=== PATIENT | male | born 1970 | race Caucasian/White ===

== ENCOUNTER 2016-11-19 18:40 | Inpatient (IN) | payer MEDICARE, OTHER ==
--- NOTE | ~2016-11-19 | BMI ---
[facility] Nutrition Therapy DATE: 11/21/16 Patient: DANISHA RAMOS Physician: LYN Address: [address] Room/Bed: [address] [place] [address], Zip: [place] [address] Admit Date: 11/19/16 Date of : [birth year] Height: 5 8 Weight: 280 127.4 HIGH BMI NOTE: DX: 45 yo male admitted for COPD exacerbation ANTHROPOMETRICS: HT: 5'3" WT: 127.4 kg (280#) BMI: 49.8 DIET: Heart healthy INTERVENTION: 1. Heart healthy diet RECOMMENDATIONS: 1. Continue heart healthy diet to promote gradual weight loss towards healthy BMI Respectfully, DAVID SHELBY, [employer] Ricki Meraz MS, RD, LD [facility] cc: client file
--- NOTE | ~2016-11-19 | HP ---
Unit #: [id number] #: [id number] Patient: DANISHA RAMOS [id number] [address] [address] [id number] I MR#: [id number] NAME: DANISHA RAMOS ROOM: 340 Age: 45 Sex: M Admission Date: 11/19/2016 : 1970 Attending Physician: Sharmaine Dalal M.D. Primary Care Physician: Rod Rivera M.D. HISTORY AND PHYSICAL CHIEF COMPLAINT COPD exacerbation. HISTORY OF PRESENT ILLNESS The patient is a 45-year-old male with past medical history of COPD, hypertension, anxiety, diabetes, peripheral neuropathy, migraine headaches, obstructive sleep apnea, chronic pain, morbid obesity, who was a direct admit from his primary care physician for evaluation of the above. The patient has had a four-week history of increasing shortness of breath and nonproductive cough. He states that he has had dyspnea on exertion when walking across the room. He states that he has had chills but no documented fever. He states that he has had chest wall pain in association with cough. He has also had paroxysmal nocturnal dyspnea. He had to sleep sitting up last night due to difficulty breathing. He has apparently had several depo-Medrol shots as well as Medrol Dosepak with no relief of symptoms. He states he has not been on antibiotics. He has not had a chest x-ray. He did have a flu swab yesterday that was negative. He was sent to [facility] for admission. PAST MEDICAL HISTORY 1. Admission to [facility] 06/18 through 06/20/2016 for headache. 2. Diabetes with peripheral neuropathy. 3. Hypertension. 4. COPD, not on home oxygen. The patient sees Dr. Ashton. 5. Anxiety. 6. History of obstructive sleep apnea, previously on CPAP. The patient states that he no longer has sleep apnea. 7. Chronic pain maintained on narcotics. 8. Migraine headaches. 9. Morbid obesity. 10. Echocardiogram 06/14/2012 was technically extremely limited and could not comment on valves but ejection fraction was noted to be 55%. PAST SURGICAL HISTORY 1. Cholecystectomy. 2. Umbilical hernia repair. 3. Cystoscopy. 4. Lap band surgery. 5. Right knee surgery. ALLERGIES 1. Doxycycline. Unit #: [id number] #: [id number] Patient: DANISHA RAMOS 2. Penicillin. 3. Darvocet. 4. Toradol. 5. Naproxen. 6. Mobic. 7. Tramadol. 8. Glyburide. 9. Keflex. 10. Flexeril. HOME MEDICATIONS Include: 1. Naproxen which is actually listed as an allergy. 2. Ventolin. 3. Xanax. 4. DuoNeb. 5. Singulair. 6. Claritin. 7. Motrin. 8. Daliresp. 9. Dulera. 10. Prednisone. 11. Amlodipine. 12. Valsartan. 13. Hydrochlorothiazide. 14. Dicyclomine. 15. Spiriva. 16. [place]. 17. Metolazone. 18. Neurontin. 19. Mupirocin topical ointment. 20. Baclofen. 21. Cialis. 22. Symbicort. Home medications will need to be reviewed and verified. SOCIAL HISTORY The patient lives with his . There is no tobacco, alcohol, or illicit drug use. FAMILY HISTORY Notable for his mother having possibly a cerebrovascular accident as well as migraine headaches. REVIEW OF SYSTEMS A complete review of systems is negative except as indicated in the HPI. The patient states that he has lost an unknown amount of weight. The patient states that his blood sugars have been in the 200 to 300 range. PHYSICAL EXAMINATION VITAL SIGNS: Temperature 98.1, pulse 94, respirations 22, blood pressure 149/101, oxygen saturation was 98% on room air. GENERAL: The patient is a male who is awake and alert, sitting in bed, in no acute distress. HEENT: Head is atraumatic. Mucous membranes are moist. NECK: Supple. Trachea is midline. LUNGS: Demonstrate inspiratory and expiratory wheezes. Breathing is not Unit #: [id number] #: [id number] Patient: DANISHA RAMOS labored with conversation. HEART: Regular rate and rhythm. ABDOMEN: Obese, soft, nontender. Bowel sounds present in all four quadrants. EXTREMITIES: Nontender. He has chronic lymphedema. NEUROLOGIC: Patient is awake and alert. He follows commands. PSYCHIATRIC: Mood and affect are normal. Patient is cooperative. SKIN OF EXAMINED AREAS: Warm and dry. DIAGNOSTIC STUDIES Currently pending. I was told by the patient's primary care physician that the flu swab was negative yesterday. ASSESSMENT The patient is a 45-year-old male with: 1. Chronic obstructive pulmonary disease exacerbation that has failed outpatient treatment with prednisone. 2. Hypertension. 3. Anxiety. 4. Diabetes. 5. Peripheral neuropathy. 6. Migraine headaches. 7. Obstructive sleep apnea. Actually, the patient states that he no longer has obstructive sleep apnea. 8. Chronic pain maintained on narcotics. 9. Morbid obesity. PLAN 1. Admit to intermediate level. 2. Healthy-heart consistent carb diet. 3. Supplemental oxygen 2-4 liters to maintain saturations greater than 92%. 4. DuoNeb q.4 h. while awake and q.2 h. p.r.n. 5. Solu-Medrol 80 mg IV q.12 h. with first dose now. 6. Consult Dr. Luna regarding COPD exacerbation. 7. Chest x-ray now. 8. Check labs including lactic acid. 9. EKG now and cardiac enzymes. 10. Urinalysis with culture and sensitivity. 11. Hemoglobin A1c. 12. Low-dose sliding scale insulin with Accu-Cheks. 13. Protonix for GI prophylaxis since the patient will be on Solu-Medrol. 14. SCDs for DVT prophylaxis. 15. Repeat labs in the morning. 16. Additional workup and consultants based on above. Dictated by Sharmaine Dalal M.D. Unit #: [id number] #: [id number] Patient: DANISHA RAMOS MAGGIE/jayce TD: 11/19/2016 18:52 JOB #: [id number] HISTORY AND PHYSICAL X Sharmaine Dalal MD X HISTORY AND PHYSICAL
--- NOTE | ~2016-11-19 | CO ---
Unit #: [id number] #: [id number] Patient: DANISHA RAMOS [id number] [place] [facility]. [place], [place] [address] [id number] I MR#: [id number] NAME: DANISHA RAMOS ROOM: 340 Age: 45 Sex: M Admission Date: 11/19/2016 : 1970 Attending Physician: Trudi Vallejo M.D. Primary Care Physician: Rod Rivera M.D. Consultation Date: 11/20/2016 CONSULTATION REPORT JOB NOTE: CC: DR. SUMMERS REASON FOR CONSULTATION Shortness of breath, asthma flare, failure with outpatient treatment. HISTORY OF PRESENT ILLNESS A 45-year-old gentleman who has asthma and apparently is followed by Dr. Ashton in our office, who has had a monthlong history of wheezing and shortness of breath and chest congestion. He has been treated with steroids in a variety of fashion without success. He finally was admitted to the hospital. He has been treated with IV steroids, nebulized bronchodilators overnight, and really does not feel much better today. He has significant wheezing. No sputum production, but he does feel congested and feels that there is "wet mucus in there," but cannot expectorate it. No fever, chest pain, or hemoptysis. He is unaware of any definite exposures over this time. He does have significant allergies including grass, trees, and dogs. Of note, he does have a dog at home. PAST MEDICAL HISTORY Remarkable for: 1. Asthma, history of diabetes, hypertension, obstructive sleep apnea; obesity, status post Lap-Band with significant weight loss; apparently re-evaluation of his sleep apnea after weight loss revealed CPAP was no longer warranted. 2. Anxiety. 3. Chronic pain. 4. Workup in the past that he tells me included cardiac catheterization and echocardiogram was all normal, but that was years ago, apparently saw Dr. Rodrigues in the past. MEDICATIONS AT HOME He states that he is on Symbicort b.i.d., although insurance is not going to cover it. Dulera is listed on med rec sheet. Ventolin, Xanax, DuoNeb, Singulair, Claritin, Motrin, Norvasc, valsartan, hydrochlorothiazide, Spiriva, [place]. He takes Zaroxolyn p.r.n., Neurontin, baclofen. Again his list has multiple redundancies. ALLERGIES Propoxyphene, Toradol, Keflex, penicillin, doxycycline, Mobic, glyburide. SOCIAL HISTORY He is a never smoker. FAMILY HISTORY Unit #: [id number] #: [id number] Patient: DANISHA RAMOS He denies any asthma in his family. REVIEW OF SYSTEMS As above and no real chest pain, palpitations, hemoptysis, abdominal pain. He denies heartburn. He does have some rhinitis symptoms. He downplays any allergies to his dog. He says usually he has itchy eyes if he gets allergies to that nature. No hematuria, dysuria, focal weakness, paresthesias. No new leg pain or swelling. Further review of systems negative. PHYSICAL EXAMINATION GENERAL: Reveals a patient, who is in no acute distress, sitting in bed, talking in full sentences. VITAL SIGNS: He is afebrile, pulse 98, respiratory rate is 19, blood pressure is 173/104, 5 feet 8 inches, 282 pounds, BMI is 45. HEENT: Pupils equal, round, and reactive to light. Sclerae anicteric. Head atraumatic. Mucous membranes are moist. He has a ordoñez. NECK: Supple. No supraclavicular or cervical adenopathy appreciated. CHEST: Tight expiratory wheeze at all lung vera. No consolidation. No stridor. CARDIAC: Reveals distant heart tones. Regular rate and rhythm. No pathologic murmur, rub, or gallop. ABDOMEN: Obese, soft, nontender. No hepatomegaly or rebound. EXTREMITIES: Reveal no clubbing, cyanosis. He has some trace edema. He does have SCD stockings in place. It appears that he has some degree of lymphedema. NEUROLOGIC: Grossly intact. No focal motor or sensory deficits. DIAGNOSTIC STUDIES IMAGING STUDIES: Chest x-ray is clear. LABORATORY RESULTS: BUN 13, creatinine 1.0. Troponin negative. BNP last month normal. Lactic acid 1.2. White blood cell count 14.2, no eosinophilia, hemoglobin 12.3, platelet count 257. Urinalysis unremarkable. Urine culture is pending. CARDIOVASCULAR STUDIES: EKG, rhythm strips are sinus. Unremarkable EKG. IMPRESSION 1. Asthma/chronic obstructive pulmonary disease exacerbation quite resistant to steroid therapy. Consider allergic stimulation versus secondary bacterial bronchitis. 2. Obesity, status post Lap-Band. 3. Obstructive sleep apnea per his history resolved with weight loss. 4. Allergies including allergies to dogs, which he has at home. 5. Hypertension with elevated blood pressure. 6. Diabetes, anxiety, chronic pain. 7. Possible lymphedema. PLAN Steroids, however, we will increase the dose. Agree with nebulized bronchodilators. I will add antibiotics for possible bronchitis. Echocardiogram will be checked in the morning for LV function and PA pressures. I will try to review Dr. Ashton's office notes in the morning including any PFTs or sleep studies. DVT prophylaxis is I do think he is at increased risk for DVT given obesity and acute illness. Thank you very much for allowing me to participate in the care of . Unit #: [id number] #: [id number] Patient: DANISHA RAMOS. Dictated by... Efren Baron/cristina TD: 11/21/2016 02:31 JOB #: [id number] CONSULTATION REPORT X Mikael Luna MD X CONSULTATION REPORT
--- NOTE | ~2016-11-19 | CR63 ---
[facility] A Service of [facility] RADIOLOGY TEXT RESULTS PATIENT: DANISHA RAMOS LOCATION: [facility] 340-01 : [birth year] UNIT #: [id number] AGE: [address]: Sharmaine Dalal MD SEX: M ORDER DR: [id number] [facility] [address] [facility]. [place], [place] [address] [id number] I MR#: [id number] Acc #: [id number] NAME: DANISHA RAMOS : 1970 SEX: M STUDY DATE/TIME: 11/19/2016 21:12 UNIT: [address] ROOM: [facility] STUDY DESCRIPTION: CR Chest 2 View Attending Physician: Sharmaine Dalal M.D. Ordering Physician: Sharmaine Dalal M.D. Primary Care Physician: Rod Rivera M.D. MEDICAL IMAGING REPORT This report is preliminary unless electronic signature is present EXAM Chest x-ray 2 views HISTORY COPD, short of air, cough, admitted 11/19/2016, symptoms for 1 day, history of hypertension, diabetes and obesity COMPARISON 10/19/2016 COMMENT 2 views of the chest are reviewed. No pleural effusion. Mild thoracic degenerative changes. Cardiac silhouette is normal. No acute appearing parenchymal infiltrate. No acute congestive failure. No pneumothorax. IMPRESSION No active disease. Dictated by... Sofia Posada M.D. THIS IS AN ELECTRONICALLY VERIFIED REPORT Sofia Posada M.D. at 11/21/2016 7:47 AM SAC/erinn TD: 11/21/2016 06:52 JOB #: [id number] MEDICAL IMAGING REPORT COPY
--- NOTE | ~2016-11-19 | CR63 ---
[facility] A Service of [facility] RADIOLOGY TEXT RESULTS PATIENT: DANISHA RAMOS LOCATION: [facility] 340-01 : [birth year] UNIT #: [id number] AGE: [address]: Trudi Vallejo MD SEX: M ORDER DR: [id number] [facility] [address] [facility]. [place], [place] [address] [id number] I MR#: [id number] Acc #: [id number] NAME: DANISHA RAMOS : 1970 SEX: M STUDY DATE/TIME: 11/21/2016 16:21 UNIT: [address] ROOM: [facility] STUDY DESCRIPTION: CR Chest 2 View Attending Physician: Trudi Vallejo M.D. Ordering Physician: Mikael Luna M.D. Primary Care Physician: Rod Rivera M.D. MEDICAL IMAGING REPORT This report is preliminary unless electronic signature is present EXAM PA and lateral chest INDICATIONS 45-year-old male with shortness of breath and chest tightness for 1 month. COMPARISON 11/19/2016 FINDINGS Lungs are well expanded and clear. Heart size is normal. The visualized osseous structures are unremarkable. IMPRESSION No active disease. Dictated by... Christiano Cotto M.D. THIS IS AN ELECTRONICALLY VERIFIED REPORT Christiano Cotto M.D. at 11/22/2016 8:08 AM MALCOLM/isidro TD: 11/22/2016 06:26 JOB #: [id number] MEDICAL IMAGING REPORT Page 1 of 1 COPY
--- NOTE | ~2016-11-19 | DS ---
Unit #: [id number] #: [id number] Patient: DANISHA RAMOS [id number] [address] [id number] I MR#: [id number] NAME: DANISHA RAMOS ROOM: 340 Age: 45 Sex: M Admission Date: 11/19/2016 : 1970 Discharge Date: Attending Physician: Trudi Vallejo M.D. Primary Care Physician: Rod Rivera M.D. DISCHARGE SUMMARY DISCHARGE DIAGNOSES 1. Acute asthma with exacerbation. 2. Hypertension. 3. Diabetes mellitus type 2 with peripheral neuropathy, uncontrolled. 4. Anxiety. 5. Migraine headache. 6. Obstructive sleep apnea. 7. Chronic pain and narcotics. 8. Morbid obesity. 9. Leukocytosis, secondary to steroids. CONSULTATION Dr. Luna. PROCEDURE None. DIAGNOSTIC STUDIES LABORATORY: Glucose 147, sodium 132, potassium 3.5, creatinine 0.9. WBC 20.2, hemoglobin 12.9, platelets 322,000. Urine cultures negative. Procalcitonin less than 0.05. IMAGING: Chest x-ray: No active disease. ALLERGIES Penicillin, glyburide, propoxyphene, cephalexin, doxycycline, ketorolac, meloxicam. DISCHARGE MEDICATIONS 1. Albuterol 3 mL nebulizer four times daily p.r.n. shortness of breath. 2. Budesonide/formoterol one to two puffs inhalation b.i.d. 3. Prednisone tapering dose. 4. Spiriva 18 mcg inhalation daily. 5. Gabapentin 100 mg p.o. at bedtime. 6. Claritin 10 mg daily. 7. Bentyl 20 two times daily. 8. Xanax 1 mg three times daily. 9. Symbicort two puffs inhalation b.i.d. 10. Amlodipine/valsartan/hydrochlorothiazide one tablet p.o. daily. 11. Zaroxolyn 5 mg three times daily p.r.n. for fluid retention. 12. NovoLog low-dose sliding scale. 13. Singulair 10 mg daily. 14. Ibuprofen 800 q.8 p.r.n. pain. 15. Lortab 10 mg four times daily p.r.n. pain. Unit #: [id number] #: [id number] Patient: DANISHA RAMOS 16. Tadalafil 5 mg daily p.r.n. 17. Daliresp 500 mcg p.o. daily. 18. Baclofen 10 mg daily. 19. DuoNeb inhalation q.6. 20. Azithromycin 250 mg p.o. daily. 21. Metformin 250 p.o. b.i.d. HOSPITALIZATION COURSE A 45 year old admitted because of shortness of breath. Asthma with exacerbation: The patient was wheezing and took a prolonged period to get better. Currently, he is off oxygen. He is ambulating fine. No wheezing. The patient will be discharged on prednisone tapering dose, Zithromax, DuoNeb, Spiriva, and Symbicort which will be given at Dr. Meier's office. Diabetes mellitus: Uncontrolled. Secondary to steroids. I gave prescription for metformin for a few days and follow with his family physician. Leukocytosis during the hospitalization course secondary to steroids trending down. Hypertension: Uncontrolled, most likely secondary to steroids. Continue with current home medications. PLAN Discussed with pulmonary, abimael to discharge the patient home. Follow with family physician in one week time. Follow with Dr. Ashton in one week time. Dictated by... Efren Ocampo/shayy TD: 11/24/2016 16:59 JOB #: [id number] DISCHARGE SUMMARY Page 1 of 1 X Trudi Vallejo MD X DISCHARGE SUMMARY
--- NOTE | ~2016-11-19 | EKG ---
PATIENT: DANISHA RAMOS UNIT #: [id number] Ventricular Rate: 91 BPM Atrial Rate: 91 BPM P-R Interval: 126 ms QRS Duration: 80 ms Q-T Interval: 334 ms QTC Calculation(Bezet): 410 ms P [place]: 51 degrees Calculated R [place]: 12 degrees Calculated T [place]: 37 degrees Diagnosis Line: Normal sinus rhythm Diagnosis Line: Normal ECG Diagnosis Line: When compared with ECG of 19-OCT-2016 15:08, Diagnosis Line: No significant change was found Diagnosis Line: Confirmed by DANISHA CARRILLO MD ([id number]) on 11/21/2016 Diagnosis Line: 7:30:45 AM INTERPRETING MD: GERARDO NG
[~2016-11-19 18:40] MED LIST: ALB/IPRATROPIUM/1 E1 INH; ALBUTEROL MININEB; ALBUTEROL17 GM; ALBUTEROL17 GM IN; ALBUTEROL17 GM INH; ALBUTEROL17 GM NEB; ALBUTEROL20 ml INH; ALDACTONE PO; ALDACTONE100 MG PO; ALPRAZOLAM PO; AMARYL PO; AMBIEN PO; AMLOD-VALSA-HC1 EAC3 PO; AMLOD-VALSA-HC1 EAC4 PO; ANTI ITCH; ANTI-ITCH28 GM TP; ASPIRIN81 M2 PO; ATARAX PO; BACLOFEN20 M1 PO; BACTRIM DS TABL1 TA1 PO; BACTROBAN22 GM TOP; BENADRYL PO; BENADRYL25 M1 PO; BENADRYL25 MG PO; BENTYL20 MG PO; BUMEX PO; BUTALB-APAP-CA1 EACH PO; CARTIA XT PO; CATAPRES-TTS-20.2 MG EXT; CATAPRES0.1 M1 PO; CELEXA PO; CIALIS5 MG PO; CLARITIN10 M2 PO; CLARITIN10 M3 PO; CLEOCIN PO; CLINDAMYCIN HC300 MG PO; CLONIDINE HCL0.1 MG PO; CLONIDINE PO; COMBIVENT U/D3 M4 INH; DALIRESP500 MCG PO; DELTASONE20 MG PO; DEMADEX PO; DICLOFENAC PO; DIPHENHYDRAMINE50 M1 PO; DULERA 200 MCG/13 GM INH; DUONEB 2.5-0.5 M3 ML NEB; FIORICET1 TAB PO; FLOMAX0.4 M1 PO; FUROSEMIDE40 MG PO; GLYBURIDE PO; HYDRALAZINE HC100 MG PO; HYDROXYZINE PA100 MG PO; IBUPROFEN IB200 M1 PO; IBUPROFEN PO; IBUPROFEN800 MG PO; IPRAT-ALBUT 0.5-3 ML; IPRAT-ALBUT 0.5-3 ML INH; IPRATR-ALBUTEROL3 ML INH; IRON325 ( 651 PO; K-DUR10 MEQ PO; KEFLEX500 M1 PO; LASIX PO; LEVAQUIN750 MG PO; LIORESAL10 MG PO; LIPITOR40 MG PO; LISINOPRIL-HCTZ1 T14 PO; LISINOPRIL10 MG PO; LISINOPRIL20 MG PO; LISINOPRIL5 MG PO; LORTAB 10-5001 EACH PO; LORTAB 10/500 T1 TAB PO; LORTAB 5/500 TA1 TA2 PO; LORTAB 7.5-5001 TAB PO; MEDROL DOSEPAK4 MG PO; METALOZONE; METFORMIN HCL500 M1 PO; METOLAZONE5 MG PO; MICRO-K10 MEQ PO; MOTRIN400 M1 PO; NAPROSYN-EC500 M1 PO; NAPROSYN500 MG PO; NEURONTIN100 MG PO; NEURONTIN300 MG PO; NORCO 10-325 TA1 TAB PO; NORCO 10/325 TA1 TAB PO; NORCO 10/3251 TAB; NORCO 7.5-3251 EACH PO; NORCO1 TAB 10/3 PO; POTASSIUM CHLO10 ME1 PO; PREDNISONE; PREDNISONE PO; PRILOSEC20 MG PO; PROTONIX PO; PROTONIX20 MG PO; SINGULAIR; SINGULAIR PO; SINGULAIR5 MG PO; SKELAXIN PO; SPIRIVA18 MCG INH; SYMBICORT; SYMBICORT 16010.2 GM; SYMBICORT 16010.2 GM INH; SYMBICORT INH; TOPAMAX PO; TOPAMAX50 MG; TOPAMAX50 MG PO; TOPROL XL 50 MG50 MG PO; VERAPAMIL ER120 M1 PO; VICODIN 5/500 T1 TAB PO; VISTARIL PO; VOLTAREN75 MG PO; XANAX0.5 M1 PO; XANAX1 MG PO; ZAROXYLYN; ZAROXYLYN PO
[2016-11-19] MEDS ORDERED: SINGULAIR PO (18:41)
[2016-11-19] MEDS ORDERED: XANAX XR1 MG PO (18:42)
[2016-11-19] MEDS ORDERED: ALBUTEROL17 GM INH (18:42)
[2016-11-19] MEDS ORDERED: DUONEB INH (18:46)
[2016-11-19 20:22] LABS: %MB 2.6 % (0.0-4.0); MB 5.4 ng/ml
[2016-11-19 20:57] LABS: ALBUMIN SERUM 3.7 g/dL (3.5-5.0); ALKALINE PHOSPHATASE 103 U/L (32-92); ALT (SGPT) 18 U/L (10-40); AST (SGOT) 17 U/L (10-42); BILIRUBIN,TOTAL 0.5 mg/dL (0.2-2.0); BLOOD UREA NITROGEN 13 mg/dL (9-23); CARBON DIOXIDE 21 mmol/L (22-31); CHLORIDE 101 mmol/L (100-111); GLOM FILT RATE Estimated ABOVE60 mL/min (>60); GLUCOSE FASTING 81 mg/dL (70-110); POTASSIUM 4.1 mmol/L (3.5-5.1); PROTEIN TOTAL SERUM 7.8 g/dL (6.0-8.3); SODIUM 133 mmol/L (135-145)
[2016-11-19 21:19] LABS: BASOPHIL# 0.1 X10e3 (0-0.3); BASOPHIL% 0.6 % (0-2.5); EOSINOPHIL# 0.1 X10e3 (0-0.7); HEMATOCRIT 39.4 % (38.0-50.0); HEMOGLOBIN 12.3 gm/dL (13.0-16.0); LYMPHOCYTE# 1.7 X10e3 (1.0-3.5); MEAN CELL VOLUME 73.6 FL (83-96); MEAN CORPUSCULAR HGB CONC 31.2 g/dL (30-36); MEAN PLATELET VOLUME 7.4 FL (6.5-11.5); MONOCYTE# 0.7 X10e3 (0-1.0); MONOCYTE% 4.7 % (3.0-12.0); NEUTROPHIL# 11.6 X10e3 (1.5-7.1); NEUTROPHIL% 81.7 % (40-75); PLATELET COUNT 357 X10e3 (140-420); RED BLOOD COUNT 5.35 X10e (3.90-5.60); RED CELL DISTRIBUTION WIDTH 18.2 % (11.0-15.5); WHITE BLOOD COUNT 14.2 X10e3 (4.0-10.5)
[2016-11-19 21:25] LABS: DIFF IND NO
[2016-11-19 21:29] LABS: URINE APPEARANCE CLEAR; URINE BILIRUBIN NEG (NEG); URINE BLOOD NEG (NEG); URINE COLOR YELLOW; URINE GLUCOSE NEG (NEG); URINE KETONE NEG (NEG); URINE LEUKOCYTE ESTERASE NEG (NEG); URINE NITRATE NEG (NEG); URINE PROTEIN NEG (NEG); URINE SPECIFIC GRAVITY 1.004 (1.003-1.035); URINE UROBILINOGEN 0.2 MG/DL (NEG)
[2016-11-19 21:34] LABS: CULTURE INDICATED? NO
[2016-11-20 02:29] LABS: %MB 2.9 % (0.0-4.0); MB 4.6 ng/ml
[2016-11-20 08:45] LABS: %MB 3.7 % (0.0-4.0); MB 4.1 ng/ml
[2016-11-21 06:25] LABS: HEMATOCRIT 39.3 % (38.0-50.0); HEMOGLOBIN 12.1 gm/dL (13.0-16.0); MEAN CELL VOLUME 74.2 FL (83-96); MEAN CORPUSCULAR HEMOGLOBIN 22.9 PG (28-34); MEAN CORPUSCULAR HGB CONC 30.9 g/dL (30-36); MEAN PLATELET VOLUME 7.8 FL (6.5-11.5); RED BLOOD COUNT 5.3 X10e (3.90-5.60)
[2016-11-21 06:26] LABS: WHITE BLOOD COUNT 31.8 X10e3 (4.0-10.5)
[2016-11-21 06:53] LABS: BLOOD UREA NITROGEN 15 mg/dL (9-23); BUN/CREATININE RATIO 13.63; CALCIUM SERUM 9.3 mg/dL (8.4-10.2); CARBON DIOXIDE 23 mmol/L (22-31); CHLORIDE 99 mmol/L (100-111); CREATININE SERUM 1.1 mg/dL (0.6-1.4); GLOM FILT RATE Estimated ABOVE60 mL/min (>60); GLUCOSE FASTING 226 mg/dL (70-110); POTASSIUM 3.9 mmol/L (3.5-5.1); SODIUM 132 mmol/L (135-145)
[2016-11-22 05:29] LABS: HEMATOCRIT 37.2 % (38.0-50.0); HEMOGLOBIN 11.6 gm/dL (13.0-16.0); MEAN CELL VOLUME 73.1 FL (83-96); MEAN CORPUSCULAR HEMOGLOBIN 22.7 PG (28-34); MEAN PLATELET VOLUME 7.8 FL (6.5-11.5); RED BLOOD COUNT 5.09 X10e (3.90-5.60); RED CELL DISTRIBUTION WIDTH 18.1 % (11.0-15.5); WHITE BLOOD COUNT 28.4 X10e3 (4.0-10.5)
[2016-11-22 06:01] LABS: BLOOD UREA NITROGEN 20 mg/dL (9-23); BUN/CREATININE RATIO 22.22; CALCIUM SERUM 9.4 mg/dL (8.4-10.2); CARBON DIOXIDE 24 mmol/L (22-31); CHLORIDE 99 mmol/L (100-111); CREATININE SERUM 0.9 mg/dL (0.6-1.4); GLOM FILT RATE Estimated ABOVE60 mL/min (>60); GLUCOSE FASTING 188 mg/dL (70-110); POTASSIUM 3.6 mmol/L (3.5-5.1); SODIUM 132 mmol/L (135-145)
[2016-11-23 12:00] LABS: HEMATOCRIT 41.7 % (38.0-50.0); HEMOGLOBIN 12.9 gm/dL (13.0-16.0); MEAN CORPUSCULAR HGB CONC 31.1 g/dL (30-36); MEAN PLATELET VOLUME 7.7 FL (6.5-11.5); RED BLOOD COUNT 5.63 X10e (3.90-5.60); RED CELL DISTRIBUTION WIDTH 18.4 % (11.0-15.5); WHITE BLOOD COUNT 20.2 X10e3 (4.0-10.5)
[2016-11-23 12:21] LABS: BLOOD UREA NITROGEN 20 mg/dL (9-23); BUN/CREATININE RATIO 22.22; CALCIUM SERUM 9.2 mg/dL (8.4-10.2); CARBON DIOXIDE 28 mmol/L (22-31); CHLORIDE 97 mmol/L (100-111); CREATININE SERUM 0.9 mg/dL (0.6-1.4); GLOM FILT RATE Estimated ABOVE60 mL/min (>60); GLUCOSE FASTING 109 mg/dL (70-110); POTASSIUM 3.5 mmol/L (3.5-5.1); SODIUM 132 mmol/L (135-145)
[2016-11-24] MEDS ORDERED: PREDNISONE PO (16:59)
[2016-11-24] MEDS ORDERED: NOVOLOG100 U/ML SUBQ (17:00)
[2016-11-24] MEDS ORDERED: ZITHROMAX PO (17:01)
[2016-11-24] MEDS ORDERED: METFORMIN PO (17:01)
== END 2016-11-24 21:05 | disposition home or self-care (01) | DRG 202 ==
LOC: C3A PCU 18:40
PROVIDERS: Family Medicine; Internal Medicine; Internal Medicine Endocrinology, Diabetes & Metabolism
PROC: B24BZZZ Ultrasonography of Heart with Aorta (ICD-10-PCS; principal; 2016-11-21)
DX: J45.901 Unspecified asthma with (acute) exacerbation (principal); J44.1 Chronic obstructive pulmonary disease with (acute) exacerbation; E11.42 Type 2 diabetes mellitus with diabetic polyneuropathy; I15.8 Other secondary hypertension; E87.1 Hypo-osmolality and hyponatremia; Z68.42 Body mass index [BMI] 45.0-49.9, adult; E11.65 Type 2 diabetes mellitus with hyperglycemia; D72.829 Elevated white blood cell count, unspecified; T38.0X5A Adverse effect of glucocorticoids and synthetic analogues, initial encounter; Y92.230 Patient room in hospital as the place of occurrence of the external cause; Z79.4 Long term (current) use of insulin; F41.9 Anxiety disorder, unspecified; G43.909 Migraine, unspecified, not intractable, without status migrainosus; G47.33 Obstructive sleep apnea (adult) (pediatric); G89.29 Other chronic pain; Z79.899 Other long term (current) drug therapy; E66.01 Morbid (severe) obesity due to excess calories; I89.0 Lymphedema, not elsewhere classified; Z90.49 Acquired absence of other specified parts of digestive tract; Z88.8 Allergy status to other drugs, medicaments and biological substances; Z88.1 Allergy status to other antibiotic agents; Z88.5 Allergy status to narcotic agent; Z88.0 Allergy status to penicillin; Z91.048 Other nonmedicinal substance allergy status
CPT/HCPCS: 71020; 80048; 80053; 81003; 82308; 82550; 82553; 82947; 83036; 83605; 84484; 85025; 85027; 87086; 93005; 93306; 94640; 94664; 94760; G0238; J0456; J1650; J1815; J2930

== ENCOUNTER → 2016-12-13 | Outpatient (CLI) | payer MEDICARE, OTHER ==
[~2016-12-13] MED LIST changes: +AZITHROMYCIN250 MG PO; +DUONEB INH; +HYDROCORTISONE30 G7 EXT; +MEDROL4 M1 PO; +METFORMIN PO; +MUPIROCIN EXT; +NOVOLOG100 U/ML SUBQ; +VENTOLIN INH; +VICODIN HP 10-1 EACH PO; +XANAX XR1 MG PO; +ZITHROMAX PO
--- NOTE | ~2016-12-13 | CR97 ---
[facility] A Service of [facility] RADIOLOGY TEXT RESULTS PATIENT: DANISHA RAMOS LOCATION: [facility] : [birth year] UNIT #: [id number] AGE: [address]: Bryan Petit III, MD SEX: M ORDER DR: [id number] [facility] [address] [facility]. [place], [place] [address] [id number] O MR#: [id number] Acc #: [id number] NAME: DANISHA RAMOS : 1970 SEX: M STUDY DATE/TIME: 12/13/2016 11:01 UNIT: [facility] ROOM: STUDY DESCRIPTION: CR Esophagram Attending Physician: Bryan Petit III, M.D. Referring Physician: Bryan Petit III, M.D. Ordering Physician: Bryan Petit III, M.D. Primary Care Physician: Rod Rivera M.D. MEDICAL IMAGING REPORT This report is preliminary unless electronic signature is present EXAM CR Esophagram INDICATIONS Dysphagia status post lap-band placement. FINDINGS The phi angle of the gastric band is 27 degrees. There is a normal mucosal pattern on the single contrast esophagram. Gastroesophageal junction is normal. There is no evidence of a stricture, mass, extrinsic mass effect. Esophageal peristalsis is normal. IMPRESSION Normal esophagram in a patient status post gastric banding. Dictated by... Chepe Harrington M.D. THIS IS AN ELECTRONICALLY VERIFIED REPORT Chepe Harrington M.D. at 12/13/2016 5:15 PM ROHIT/alexander TD: 12/13/2016 15:56 JOB #: [id number] MEDICAL IMAGING REPORT Page 1 of 1 COPY
== END | disposition home or self-care (01) ==
LOC: CRAD 10:25
DX: R13.10 Dysphagia, unspecified (principal); Z98.84 Bariatric surgery status
CPT/HCPCS: 74220

== ENCOUNTER → 2017-01-03 | Day surgery (SDC) | payer MEDICARE, OTHER ==
--- NOTE | ~2017-01-03 | OR ---
Unit #: [id number] #: [id number] Patient: DANISHA RAMOS [id number] [address] [place], [place] [address] [id number] O MR#: [id number] NAME: DANISHA RAMOS ROOM: Date of Procedure: 01/03/2017 Admission Date: 01/03/2017 Surgeon: Bryan Petit III, M.D. : 1970 Attending Physician: Bryan Petit III, M.D. Primary Care Physician: Rod Rivera M.D. PROCEDURE OPERATIVE NOTE PREOPERATIVE DIAGNOSIS Dysphagia. POSTOPERATIVE DIAGNOSIS Erosive gastritis with ulceration. PROCEDURE PERFORMED Esophagogastroduodenoscopy with biopsy and JUANITO testing. ANESTHESIA MAC. SPECIMEN Antrum was sent for JUANITO and for path. COMPLICATIONS None apparent. INDICATIONS FOR PROCEDURE This is a 46-year-old gentleman who is having some dysphagia symptoms despite his band being fully deflated. He had an upper GI that showed no points of obstruction. He is here today for upper endoscopy. DESCRIPTION OF PROCEDURE After consent was obtained, the patient was brought to the endoscopy suite, placed in the left lateral decubitus position. I titrated the above sedation and passed an EGD scope easily into the esophagus under direct visualization. He had normal peristalsis, no evidence of any erosions or esophagitis. The esophagus was widely patent with no strictures or narrowings. The pouch was of normal size and I was able to easily advance the scope through the opening of the band. Within the stomach, especially near the antrum, he was noted to have multiple small ulcers consistent with erosive gastritis with ulcerations. Coating Supervisor biopsies of this were taken. I also took a sampling for JUANITO testing. The pylorus was patent in the first and second portions of the duodenum appeared normal. The largest of the ulcers appeared to be 3 to 4 mm. There was no active bleeding. The scope was retroflexed within the cardia and, again, there were no problems seen with his lap band, specifically no erosion. The scope was then straightened and carefully withdrawn. The patient tolerated the procedure without any problems and I will have him call my office in a couple of days for biopsy results. Unit #: [id number] #: [id number] Patient: DANISHA RAMOS Dictated by... Bryan Petit III, M.D. VCL/gricelda TD: 01/05/2017 06:46 JOB #: [id number] PROCEDURE OPERATIVE NOTE Page 1 of 1 X Bryan Petit III, MD X PROCEDURE OPERATIVE NOTE
== END | disposition home or self-care (01) ==
LOC: COPS 10:24
DX: K29.00 Acute gastritis without bleeding (principal); R13.10 Dysphagia, unspecified; I10 Essential (primary) hypertension; E11.9 Type 2 diabetes mellitus without complications; J45.909 Unspecified asthma, uncomplicated; J44.9 Chronic obstructive pulmonary disease, unspecified; E66.01 Morbid (severe) obesity due to excess calories; M06.9 Rheumatoid arthritis, unspecified; F41.9 Anxiety disorder, unspecified; F17.210 Nicotine dependence, cigarettes, uncomplicated; Z68.43 Body mass index [BMI] 50.0-59.9, adult; Z86.73 Personal history of transient ischemic attack (TIA), and cerebral infarction without residual deficits; Z88.0 Allergy status to penicillin; Z88.1 Allergy status to other antibiotic agents; Z88.8 Allergy status to other drugs, medicaments and biological substances; Z79.891 Long term (current) use of opiate analgesic; Z79.899 Other long term (current) drug therapy; Z90.49 Acquired absence of other specified parts of digestive tract; Z96.651 Presence of right artificial knee joint; Z98.84 Bariatric surgery status; Z98.890 Other specified postprocedural states
CPT/HCPCS: 87077; 88305; 88312; J2250

== ENCOUNTER 2017-02-22 14:13 | Inpatient (IN) | payer MEDICARE, OTHER ==
--- NOTE | ~2017-02-22 | CR170 ---
[facility] A Service of [facility] RADIOLOGY TEXT RESULTS PATIENT: DANISHA RAMOS LOCATION: [facility] : [birth year] UNIT #: [id number] AGE: [address]: Corinna Medrano MD SEX: M ORDER DR: [id number] [facility] [address] [facility]. [place], [place] [address] [id number] I MR#: [id number] Acc #: [id number] NAME: DANISHA RAMOS : 1970 SEX: M STUDY DATE/TIME: 02/23/2017 14:14 UNIT: [address] ROOM: [facility] STUDY DESCRIPTION: CR Knee 2 Views Rt Attending Physician: Corinna Medrano M.D. Ordering Physician: Corinna Medrano M.D. Primary Care Physician: Rod Rivera M.D. MEDICAL IMAGING REPORT This report is preliminary unless electronic signature is present EXAM Right knee HISTORY Knee pain posteriorly with weakness on the right side, onset today. Previous knee surgery. TECHNIQUE 2 views of the knee were obtained and compared with 04/21/2014 FINDINGS Alignment and position across the knee prosthesis is unchanged. There is more resorption of bone seen around the tibial component compared to the previous examination. This could reflect loosening or even chronic infection. The femoral component is unchanged. There is moderate joint effusion. No fractures noted. IMPRESSION Increased bony resorption around the stem of the tibial component of the prosthesis compared to the previous examination. Possible loosening or chronic infection. The femoral component is unchanged. STAT * RESULT Dictated by... Reuben Major M.D. THIS IS AN ELECTRONICALLY VERIFIED REPORT Reuben Major M.D. at 02/23/2017 6:52 PM [facility] A Service of [facility] RADIOLOGY TEXT RESULTS PATIENT: DANISHA RAMOS LOCATION: [facility] : [birth year] UNIT #: [id number] AGE: [address]: Corinna Medrano MD SEX: M ORDER DR: SANDRA/russ TD: 02/23/2017 14:56 JOB #: [id number] MEDICAL IMAGING REPORT Page 1 of 1 COPY
--- NOTE | ~2017-02-22 | DS ---
Unit #: [id number] #: [id number] Patient: DANISHA THORPE [id number] [address] [place], [place] [address] [id number] MR#: [id number] NAME: DANISHA THORPE ROOM: 312 Age: 46 Sex: M Admission Date: 02/22/2017 : 1970 Discharge Date: 02/24/2017 Attending Physician: Corinna Medrano M.D. DISCHARGE SUMMARY PRINCIPAL DIAGNOSES 1. Acute exacerbation of chronic obstructive pulmonary disease. 2. Gastritis on recent esophagogastroduodenoscopy. 3. Hypokalemia, replaced. 4. Instability of right knee with x-ray revealing loosening of prior replacement. The patient will follow up with Dr. Triana. 5. Chronic right knee Ashton cyst complicated. 6. Hypertension. 7. Diabetes mellitus type 2. 8. Obstructive sleep apnea, now resolved after Lap-Band surgery. 9. Anxiety. 10. Chronic pain syndrome, maintained on narcotics. 11. Tobacco abuse. 12. Chronic lymphedema. 13. Morbid obesity. CONSULTANTS Dr. Luna, pulmonology. DIAGNOSTIC STUDIES IMAGING: Chest x-ray on February 22, 2017 with no acute findings. X-ray of right knee on February 23, 2017 with increased bony reabsorption around the stem of the tibial component of the prosthetic concerning for loosening. Right lower extremity venous Doppler, which demonstrates no evidence of DVT. There is a 5-cm popliteal fossa cyst. CLINICAL HISTORY AND HOSPITAL COURSE Mr. Thorpe is a 46-year-old male sent from Dr. Gillespie's office due to increasing wheezing. Please refer to H and P for further details. Patient was not hypoxic upon presentation, and lab work was unremarkable. He was placed in the hospital for further evaluation. The patient was placed on IV steroids, and Dr. Luan was consulted. The patient was maintained on steroids for approximately 48 hours. He is still having a mild amount of wheezing upon discharge, but a lot of this is upper airway, and some of it appears to be forced. Dr. Luna is going to place him on a tapering dose of prednisone. He can be discharged home. The patient was also complaining of right knee pain. Venous Doppler did reveal a chronic known cyst, and this can be followed up by Dr. Triana as an outpatient. He was also complaining about weakening of his right knee, Unit #: [id number] #: [id number] Patient: DANISHA THORPE and there does appear to be increased bone resorption on x-ray. The patient has already contacted Dr. Triana's office and is going to see him Monday morning. The patient's other chronic conditions remained stable. I will note, on day of discharge, he really wants to stay in the hospital but does not really have any medical criteria for continuing hospitalization; thus, he will be discharged home. Dr. Gillespie is aware of his discharge. I am going to give the patient a single dose of Depo-Medrol 80 mg prior to discharge. DISCHARGE CONDITION Stable. DISCHARGE STATUS Discharge to home. DISCHARGE MEDICATIONS 1. Azithromycin 250 mg daily for 4 days. 2. Prednisone 20 mg 2 tablets daily for 5 days, then 1 tablet daily for 5 days, then discontinue. 3. Protonix is increased to 40 mg b.i.d. 4. Symbicort 160/4.5 mcg 2 puffs b.i.d. 5. Hydrocortisone 1% cream to lower extremities b.i.d. 6. Spiriva 18 mcg 1 puff daily. 7. Neurontin 100 mg at bedtime. 8. Claritin 10 mg daily. 9. Bentyl 20 mg b.i.d. p.r.n. 10. Xanax XR 1 mg t.i.d. 11. Norvasc/losartan/HCTZ 10/160/25 mg 1 daily. 12. Metolazone 5 mg p.o. t.i.d. p.r.n. swelling. 13. Singulair 10 mg daily. 14. Ibuprofen 800 mg p.o. t.i.d. p.r.n. pain. 15. [place] 10/325 mg 1 tablet q.i.d. p.r.n. pain. 16. Cialis 5 mg p.r.n. 17. Daliresp 500 mcg daily. 18. Baclofen 10 mg daily. 19. Ventolin inhaler 2 puffs q.6 hours p.r.n. shortness of breath. 20. DuoNeb nebulizer treatments 3 mL q.4-6 hours p.r.n. shortness of breath. DISCHARGE INSTRUCTIONS Patient was instructed to follow a heart healthy, constant carb diet. He can increase his activity as tolerated. FOLLOW-UP 1. I have contacted Dr. Gillespie. He wants to see patient tomorrow morning at 11:30 a.m. 2. Patient will follow up with Dr. Triana on Monday, as noted. NOTE: Time spent on discharge - 32 minutes. Dictated by... Corinna Medrano M.D. [facility]/keven Unit #: [id number] #: [id number] Patient: DANISHA THORPE TD: 02/25/2017 15:50 JOB #: [id number] DISCHARGE SUMMARY Page 1 of 1 X Corinna Medrano MD X DISCHARGE SUMMARY
--- NOTE | ~2017-02-22 | EKG ---
PATIENT: DANISHA RAMOS UNIT #: [id number] Ventricular Rate: 77 BPM Atrial Rate: 77 BPM P-R Interval: 126 ms QRS Duration: 84 ms Q-T Interval: 346 ms QTC Calculation(Bezet): 391 ms P [place]: 46 degrees Calculated R [place]: -6 degrees Calculated T [place]: 17 degrees Diagnosis Line: Normal sinus rhythm Diagnosis Line: Normal ECG Diagnosis Line: When compared with ECG of 19-NOV-2016 19:14, Diagnosis Line: No significant change was found Diagnosis Line: Confirmed by JUSTO TOSCANO MD ([id number]) on Diagnosis Line: 02/23/2017 7:34:12 AM INTERPRETING IVANIA BARBER
--- NOTE | ~2017-02-22 | BMI ---
[facility] Nutrition Therapy DATE: 02/23/17 Patient: DANISHA RAMOS Physician: LYN Address: [address] Room/Bed: [address] [place] [address], Zip: [place] [address] Admit Date: 02/22/17 Date of : [birth year] Height: Weight: 289 131.2 HIGH BMI NOTE: ANTHROPOMETRICS: HT: 63" WT: 131.2 KG BMI: 51.2 DIET: HH/CC RECOMMENDATIONS: 1. CONTINUE CURRENT DIET TOLERATED IN ORDER TO PROMOTE GRADUAL WEIGHT LOSS TOWARDS A HEALTHY BMI. Respectfully, MANI JACKSON RD, LD [employer] [facility] cc: client file
--- NOTE | ~2017-02-22 | HP ---
Unit #: [id number] #: [id number] Patient: DANISHA THORPE [id number] [address] [address] [id number] I MR#: [id number] NAME: DANISHA THORPE ROOM: 312 Age: 46 Sex: M Admission Date: 02/22/2017 : 1970 Attending Physician: Ophelia Gillespie M.D. Primary Care Physician: Rod Rivera M.D. HISTORY AND PHYSICAL CHIEF COMPLAINT Shortness of breath. HISTORY OF PRESENT ILLNESS Mr. Thorpe is a 46-year-old male with a history of asthma plus or minus COPD, who presents to the ER for above. I will note patient is followed by Dr. Ashton on an outpatient basis. He was recently hospitalized at this facility in November 2016 after presenting with an asthma exacerbation which unfortunately required a long prolonged course of steroids. The patient states he has been increasingly short of breath over the last two to three weeks. He has been treated with a Medrol Dosepak in addition to tapering oral steroids by his primary care provider but he simply has not improved. He endorses some associated chills. He does not document any fever. He has had no known sick contacts. He denies any diarrhea. He did have a few episodes of emesis a few days ago. He denies any dysuria. He tried to come to our ER several times yesterday but did not want to wait and thus went back home. He was seen today by Dr. Gillespie who noticed he was wheezing and referred him for admission. He has not been hypoxic. Right now the patient states his shortness of breath is worse primarily with exertion. He is more concerned about some swelling and pain in his right posterior knee for which he has a known complicated Ashton cyst found on ultrasound in February 2016. He would like to have his Ashton cyst dealt with while he is here as well. PAST MEDICAL HISTORY 1. Asthma versus COPD followed by Dr. Ashton. 2. Diabetes mellitus type 2, reportedly controlled but with associated peripheral neuropathy. Last hemoglobin A1c was in November 2016 at 5.9. 3. Hypertension. 4. Tobaccoism. 5. Chronic pain syndrome maintained on narcotics. 6. Probable obstructive sleep apnea. 7. Chronic lymphedema. 8. Anxiety. 9. Morbid obesity. PAST SURGICAL HISTORY Includes: 1. Cholecystectomy. 2. Umbilical hernia repair. 3. Cystoscopy. 4. Lap-Band surgery. 5. Right knee surgery. Unit #: [id number] #: [id number] Patient: DANISHA THORPE HOME MEDICATIONS Include: 1. Metolazone 5 mg p.o. as directed, frequency is not available. 2. Neurontin 100 mg p.o. nightly. 3. Mupirocin 2% topical ointment applied to the skin t.i.d. 4. Baclofen 10 mg p.o. nightly. 5. Cialis 5 mg two tablet p.o. p.r.n. 6. Symbicort 160/4.5 mcg one to two puffs inhaled b.i.d. 7. Xanax 1 mg t.i.d. 8. DuoNeb q.6 h. around the clock. 9. Claritin 10 mg daily. 10. Medrol Dosepak which recently was completed. 11. Singulair 10 mg daily. 12. Ventolin inhaler two puffs q.i.d. 13. Ibuprofen 800 mg t.i.d. 14. Hydrocortisone 1% lotion applied to skin b.i.d. 15. Daliresp 500 mcg daily. 16. Dulera 200/5 mcg two puffs b.i.d. I will note this is listed with Symbicort but I do not believe patient is taking both at this time. 17. Recent prednisone taper. 18. Dicyclomine 20 mg p.o. b.i.d. 19. Norvasc 10/valsartan 160/hydrochlorothiazide 25 mg daily. 20. Spiriva one puff daily. 21. [place] 10/325 one tablet p.o. q.i.d. ALLERGIES Include: 1. Doxycycline. 2. Penicillin. 3. Darvocet. 4. Toradol. 5. Naproxen. 6. Mobic. 7. Flexeril. 8. Keflex. 9. Glyburide. 10. Tramadol is also listed. SOCIAL HISTORY Patient chews about a can of tobacco per day. He denies any smoke use. No alcohol, no illicit drug use. FAMILY HISTORY Notable for mother having history of stroke. Migraine headaches also run in the family. REVIEW OF SYSTEMS Denies any recent weight gain, weight loss. Denies any fever but does have chills, as noted. No sore throat, no difficulty swallowing. Shortness of breath as noted. He has had a nonproductive cough. No chest pain. Nausea a few days ago with emesis, now resolved. No diarrhea, no abdominal pain. No hematuria, no dysuria. He is complaining of right posterior leg pain. No new skin rashes. No new tingling, numbness, weakness of extremities. Otherwise, a 10-point review of systems are reviewed and is negative. PHYSICAL EXAMINATION Unit #: [id number] #: [id number] Patient: DANISHA THORPE VITAL SIGNS: Temperature 98.7, blood pressure 140/104, pulse 90, respiratory rate 16, oxygen saturation 99% on room air. GENERAL: The patient is awake, alert. He is oriented times 3 and is somewhat anxious. HEENT: Pupils equally round and reactive to light bilaterally. Anicteric sclerae. No conjunctival pallor. Oropharynx with moist mucous membranes. There is some erythema of the uvula and the posterior pharynx but there is no exudate. NECK: Increased neck diameter. Supple. No lymphadenopathy, no thyromegaly, no JVD. HEART: Regular rate and rhythm without any appreciable murmur, rub, or gallop. LUNGS: Diminished bilaterally with only mild expiratory wheezes diffusely. ABDOMEN: Obese, soft, nontender, nondistended. Positive bowel sounds. No appreciable hepatosplenomegaly. EXTREMITIES: No cyanosis or clubbing. 1 to 2+ nonpitting edema on the right versus 1 on the left. There is a large, tender Ashton cyst in the right posterior knee. NEUROLOGIC: Cranial nerves II-XII intact. Sensation, strength and deep tendon reflexes are grossly normal. PSYCHIATRIC: Again, anxious but no suicidal or homicidal ideation. MUSCULOSKELETAL: No significant joint abnormalities other than Ashton cyst noted upon exam. DIAGNOSTIC STUDIES LABORATORY: None available currently. IMAGING: Chest x-ray is also pending. ASSESSMENT 1. Acute asthma versus chronic obstructive pulmonary disease exacerbation, mild. 2. Right posterior knee pain with chronic known Ashton cyst. 3. Diabetes mellitus type 2, reportedly controlled with associated peripheral neuropathy. 4. Hypertension. 5. Lymphedema. 6. Anxiety. 7. Probable obstructive sleep apnea. 8. Tobaccoism. 9. Morbid obesity. PLAN 1. Will place patient in observation overnight with telemetry. 2. I am going to start patient on Solu-Medrol 40 mg IV q.12 h. in addition to DuoNeb nebulizer treatments and empiric Levaquin given his allergies to many antibiotics. 3. I will obtain sputum Gram stain and culture. 4. I am going to continue him on his Singulair and his Claritin in addition to his Daliresp as well. I will ask Dr. Luna to see in the morning but I anticipate hospitalization will hopefully be very short. 5. I will obtain right posterior knee ultrasound to evaluate Ashton cyst but I think this can safely be dealt with on an outpatient basis. 6. Will continue Accu-Cheks a.c. and h.s., provide low dose sliding scale and recheck hemoglobin A1c. 7. Will continue antihypertensives in addition to anxiety medication. 8. Briefly counseled regarding tobacco use. Patient states, "chewing tobacco makes me breathe better." Unit #: [id number] #: [id number] Patient: DANISHA THORPE 9. I will obtain a copy of most recent 2-dimensional echocardiogram done on last hospitalization to evaluate for pulmonary hypertension and/or valvular abnormality. 10. Will check chest x-ray this evening. 11. DVT and GI prophylaxis. Dictated by Corinna Medrano M.D. DAVIDE/jayce TD: 02/22/2017 23:00 JOB #: [id number] HISTORY AND PHYSICAL Page 1 of 1 X Corinna Medrano MD X HISTORY AND PHYSICAL
--- NOTE | ~2017-02-22 | US85 ---
[facility] A Service of [facility] RADIOLOGY TEXT RESULTS PATIENT: DANISHA RAMOS LOCATION: [facility] : [birth year] UNIT #: [id number] AGE: [address]: Corinna Medrano MD SEX: M ORDER DR: [id number] [facility] [address]. [place], [place] [address] [id number] I MR#: [id number] Acc #: [id number] NAME: DANISHA RAMOS : 1970 SEX: M STUDY DATE/TIME: 02/22/2017 21:37 UNIT: A U ROOM: [facility] STUDY DESCRIPTION: US LE Veins Unilat or Ltd Stdy Attending Physician: Ophelia Gillespie M.D. Ordering Physician: Corinna Medrano M.D. Primary Care Physician: Rod Rivera M.D. MEDICAL IMAGING REPORT This report is preliminary unless electronic signature is present EXAM Right lower extremity venous Doppler. INDICATION Right popliteal mass/Ashton's cyst for the past 3 days. Palpable mass in the right popliteal fossa. PROCEDURE [place]-scale, color Doppler, spectral imaging deep veins right leg. COMPARISON None. FINDINGS Deep veins right leg compress normally, show normal color Doppler and spectral characteristics. A complex hypoechoic mass right popliteal fossa measures 5.0 x 2.1 x 3.2 cm. IMPRESSION 1. No evidence for DVT in the right leg. 2. 5 cm likely popliteal fossa cyst. Dictated by... Meliton Sanchez M.D. THIS IS AN ELECTRONICALLY VERIFIED REPORT Meliton Sanchez M.D. at 02/23/2017 10:08 AM CAYLA/lilly TD: 02/22/2017 22:25 JOB #: [id number] [facility] A Service of [facility] RADIOLOGY TEXT RESULTS PATIENT: DANISHA RAMOS LOCATION: [facility] : [birth year] UNIT #: [id number] AGE: [address]: Corinna Medrano MD SEX: M ORDER DR: MEDICAL IMAGING REPORT Page 1 of 1 COPY
--- NOTE | ~2017-02-22 | CO ---
Unit #: [id number] #: [id number] Patient: DANISHA THORPE [id number] [address] [place], [place] [address] [id number] I MR#: [id number] NAME: DANISHA THORPE ROOM: 312 Age: 46 Sex: M Admission Date: 02/22/2017 : 1970 Attending Physician: Corinna Medrano M.D. Primary Care Physician: Rod Rivera M.D. Consultation Date: 02/23/2017 CONSULTATION REPORT REASON FOR CONSULTATION Asthma. HISTORY OF PRESENT ILLNESS A 46-year-old gentleman, followed by Dr. Ashton in our office, who has apparently severe asthma and is on maximal treatment and states compliance, has had wheezing and chest tightness for many days. He apparently received a Medrol Dosepak as an outpatient without improvement. He was evaluated on the day of admission and was told to come to the hospital. He feels somewhat better today, but still has significant dyspnea on exertion. Very minimal sputum production, no hemoptysis, no chest pain, no fever. PAST MEDICAL HISTORY Remarkable for asthma; diabetes; obstructive sleep apnea, resolved with weight loss; status post Lap-Band; hypertension; chronic pain; chronic lymphedema; anxiety. MEDICATIONS At home, he is on Symbicort 2 puffs b.i.d. with a spacer, Spiriva once a day, Singulair daily, Daliresp daily, albuterol as needed. Apparently, he is also on metolazone, Neurontin, baclofen, Cialis, Xanax, Claritin, ibuprofen, Norvasc, [place] and a variety of creams. ALLERGIES Doxycycline, penicillin, Darvocet, Toradol, Naprosyn, Mobic, Flexeril, Keflex, glyburide, tramadol, unknown reactions. SOCIAL HISTORY Denies smoking, but he does chew tobacco. He has a dog at home, but insisted it is an outside dog, apparently it is a pit bull. FAMILY HISTORY No definite familial lung disease. REVIEW OF SYSTEMS He was allergy tested as a child, but has not had any recent allergy testing. No fever, chills, weight loss. He did have some "cold sweats." No chest pain, palpitations, abdominal pain, melena, hematochezia, heartburn. He did have an EGD in January, which revealed erosive gastritis with ulceration. No abdominal pain, melena, hematochezia, hematuria, dysuria, focal weakness, paresthesias. He denies any exposures to any inhaled irritants that he is aware of. He has not been around his dog more than usual. Unit #: [id number] #: [id number] Patient: DANISHA THORPE PHYSICAL EXAMINATION GENERAL: Reveals a patient, who is in no acute distress, sitting at the side of his bed on room air. HEENT: He is afebrile. Pulse 87, respiratory rate 16, blood pressure is 129/80, he is 5 feet 3 inches, 289 pounds, BMI is 50. HEENT: Pupils are equal, round, and reactive to light. Sclerae anicteric. Head atraumatic. NECK: Supple. No supraclavicular or cervical adenopathy appreciated. Mucous membranes moist. He has expiratory wheeze, reasonable air flow. Does have some mild cough with ventilation maneuvers. CARDIAC: Reveals regular rate and rhythm. No pathologic murmur, rub, or gallop. ABDOMEN: Soft and nontender. No hepatomegaly or rebound. EXTREMITIES: Reveal no clubbing or cyanosis. He does have some edema, but primarily lymphedema, which he states is stable. NEUROLOGIC: Grossly intact. No focal, motor or sensory deficits. DIAGNOSTIC STUDIES IMAGING STUDIES: Chest x-ray was unremarkable. Rhythm strip; sinus. EKG unremarkable. LABORATORY RESULTS: Creatinine is 1.1, potassium is 3.4. White blood cell count is 12.8, hemoglobin 10.7. No significant eosinophilia, but I am not even sure if differential was performed. IMPRESSION 1. Asthma, failed outpatient treatment, likely allergic. 2. Obstructive sleep apnea, resolved per history after lap banding. 3. History of gastritis. I do not see where he is on any proton pump inhibitors. 4. Chronic pain. 5. Chronic lymphedema. 6. A variety of medical problems listed above. PLAN Agree with treatment for his asthma with steroids, nebulized bronchodilators. His allergies limit antibiotic therapy, but I will try to change his Levaquin to Zithromax. I may increase his steroids somewhat. Otherwise, continue therapy. I will add proton pump inhibitors for his gastritis. Certainly, reflux could contribute to his poorly controlled asthma. As an outpatient once off steroids, I would consider some type of allergy testing and evaluation for Xolair. Thank you very much for allowing me to participate in the care of Mr. Thorpe. Dictated by... Mikael Luna M.D. TANG/cristina TD: 02/24/2017 04:42 JOB #: [id number] Unit #: [id number] #: [id number] Patient: DANISHA THORPE CONSULTATION REPORT Page 1 of 1 X Mikael Luna MD CONSULTATION REPORT
--- NOTE | ~2017-02-22 | CR63 ---
[facility] A Service of [facility] RADIOLOGY TEXT RESULTS PATIENT: DANISHA RAMOS LOCATION: [facility] 312- : [birth year] UNIT #: [id number] AGE: [address]: Ophelia Gillespie MD SEX: M ORDER DR: [id number] [facility] [address]. [place], [place] [address] [id number] I MR#: [id number] Acc #: [id number] NAME: DANISHA RAMOS : 1970 SEX: M STUDY DATE/TIME: 02/22/2017 21:56 UNIT: [address] ROOM: [facility] STUDY DESCRIPTION: CR Chest 2 View Attending Physician: Ophelia Gillespie M.D. Ordering Physician: Corinna Medrano M.D. Primary Care Physician: Rod Rivera M.D. MEDICAL IMAGING REPORT This report is preliminary unless electronic signature is present EXAM Chest x-ray, 02/22 at 21:56. INDICATION Cough, congestion, and shortness of air for the last 3 weeks. History of COPD. FINDINGS Two views of the chest compared with 11/21/2016. Cardiac and mediastinal contours are normal. The lungs remain clear. There is no pneumothorax. Gastric band noted in the upper abdomen. IMPRESSION No active disease. Dictated by... Reuben Velasco Jr., M.D. THIS IS AN ELECTRONICALLY VERIFIED REPORT Reuben Velasco Jr., M.D. at 02/23/2017 6:08 AM ANGIE/lilly TD: 02/22/2017 22:48 JOB #: [id number] MEDICAL IMAGING REPORT Page 1 of 1 COPY
[~2017-02-22 14:13] MED LIST changes: -AZITHROMYCIN250 MG PO; -HYDROCORTISONE30 G7 EXT; -MEDROL4 M1 PO; -MUPIROCIN EXT; -VENTOLIN INH; -VICODIN HP 10-1 EACH PO
[2017-02-22] MEDS ORDERED: MEDROL4 M1 PO (19:54)
[2017-02-22] MEDS ORDERED: VENTOLIN INH (19:57)
[2017-02-22] MEDS ORDERED: HYDROCORTISONE30 G7 EXT (19:58)
[2017-02-22] MEDS ORDERED: DULERA 200 MCG/13 GM INH (19:59)
[2017-02-22] MEDS ORDERED: DELTASONE20 MG PO (19:59)
[2017-02-22] MEDS ORDERED: MUPIROCIN EXT (20:01)
[2017-02-22] MEDS ORDERED: DALIRESP500 MCG PO (20:03)
[2017-02-22 20:40] LABS: HEMATOCRIT 34.3 % (38.0-50.0); HEMOGLOBIN 10.7 gm/dL (13.0-16.0); MEAN CELL VOLUME 74.2 FL (83-96); MEAN CORPUSCULAR HEMOGLOBIN 23.1 PG (28-34); MEAN CORPUSCULAR HGB CONC 31.2 g/dL (30-36); MEAN PLATELET VOLUME 7.3 FL (6.5-11.5); RED BLOOD COUNT 4.62 X10e (3.90-5.60); RED CELL DISTRIBUTION WIDTH 17.7 % (11.0-15.5); WHITE BLOOD COUNT 12.8 X10e3 (4.0-10.5)
[2017-02-22 21:05] LABS: BUN/CREATININE RATIO 6.36; CALCIUM SERUM 8.8 mg/dL (8.4-10.2); CREATININE SERUM 1.1 mg/dL (0.6-1.4); GLOM FILT RATE Estimated 79.5 mL/min (>60); POTASSIUM 3.4 mmol/L (3.5-5.1)
[2017-02-24] MEDS ORDERED: PREDNISONE (14:10)
[2017-02-24] MEDS ORDERED: VICODIN HP 10-1 EACH PO (14:11)
[2017-02-24] MEDS ORDERED: PROTONIX PO (14:12)
[2017-02-24] MEDS ORDERED: ALBUTEROL17 GM INH (14:12)
[2017-02-24] MEDS ORDERED: AZITHROMYCIN250 MG PO (14:12)
== END 2017-02-24 23:04 | disposition home or self-care (01) | DRG 191 ==
LOC: UNDOADMOB 18:12 → C3A PCU 18:12
PROVIDERS: Internal Medicine
DX: J44.1 Chronic obstructive pulmonary disease with (acute) exacerbation (principal); Z68.43 Body mass index [BMI] 50.0-59.9, adult; E11.42 Type 2 diabetes mellitus with diabetic polyneuropathy; T84.032A Mechanical loosening of internal right knee prosthetic joint, initial encounter; E66.01 Morbid (severe) obesity due to excess calories; K29.70 Gastritis, unspecified, without bleeding; E87.6 Hypokalemia; Y79.2 Prosthetic and other implants, materials and accessory orthopedic devices associated with adverse incidents; M71.21 Synovial cyst of popliteal space [Baker], right knee; I10 Essential (primary) hypertension; F41.9 Anxiety disorder, unspecified; G89.4 Chronic pain syndrome; Z79.891 Long term (current) use of opiate analgesic; I89.0 Lymphedema, not elsewhere classified; F17.220 Nicotine dependence, chewing tobacco, uncomplicated; Z98.84 Bariatric surgery status; Z90.49 Acquired absence of other specified parts of digestive tract; Z88.0 Allergy status to penicillin; Z88.1 Allergy status to other antibiotic agents; Z88.5 Allergy status to narcotic agent; Z88.8 Allergy status to other drugs, medicaments and biological substances
CPT/HCPCS: 71020; 73560; 80048; 82947; 83036; 84484; 85027; 87070; 87205; 93005; 93971; 94640; 94760; J0456; J1040; J1650; J1815; J2920

== ENCOUNTER 2017-03-23 14:23 | Emergency (ER) | payer MEDICARE, OTHER ==
[~2017-03-23] VITALS: Ht 160 cm; Wt 127.9 kg
--- NOTE | ~2017-03-23 | CT4 ---
[facility] A Service of [facility] RADIOLOGY TEXT RESULTS PATIENT: DANISHA RAMOS LOCATION: [facility] : [birth year] UNIT #: [id number] AGE: [address]: Reuben Eaton MD SEX: M ORDER DR: [id number] [facility] [address] [place], [place] [address] [id number] MR#: [id number] Acc #: [id number] NAME: DANISHA RAMOS : 1970 SEX: M STUDY DATE/TIME: 03/23/2017 17:38 UNIT: ANDREZ ROOM: STUDY DESCRIPTION: CT Abd and Pelv Wo Cont Attending Physician: Reuben Eaton M.D. Ordering Physician: Reuben Eaton M.D. Primary Care Physician: Ophelia Gillespie M.D. MEDICAL IMAGING REPORT This report is preliminary unless electronic signature is present EXAM CT abdomen and pelvis without contrast HISTORY Left flank pain and left side numbness for 4 days. Dysuria. Hematuria. TECHNIQUE This CT exam was performed with one or more of the following radiation dose reduction techniques: automatic control, adjustment of mA and/or kV according to patient size, and iterative reconstruction. FINDINGS CT abdomen and pelvis was performed without contrast CT ABDOMEN: Laparoscopic gastric band is in satisfactory position. Cholecystectomy. Mild splenomegaly. The liver, pancreas, left kidney, and adrenal glands are normal. Approximately 1.5 cm cyst posterior lower pole right kidney. No renal calculi. No hydronephrosis. No bowel dilatation or ascites. Normal caliber abdominal aorta. CT PELVIS: Normal appendix. No bladder calculi. No free fluid. No adenopathy. IMPRESSION 1. No acute findings. 2. No urinary calculi or obstruction. 3. No free fluid or inflammatory changes. 4. Mild splenomegaly is stable compared to CT 10/03/2013. Dictated by... Natalio Marquez M.D. [facility] A Service of [facility] RADIOLOGY TEXT RESULTS PATIENT: DANISHA RAMOS LOCATION: [facility] : [birth year] UNIT #: [id number] AGE: [address]: Reuben Eaton MD SEX: M ORDER DR: THIS IS AN ELECTRONICALLY VERIFIED REPORT Natalio Dea Marquez M.D. at 03/24/2017 11:42 PM DFL/russ TD: 03/24/2017 01:22 JOB #: [id number] MEDICAL IMAGING REPORT Page 1 of 1 COPY
[~2017-03-23 14:23] MED LIST changes: +AZITHROMYCIN250 MG PO; +HYDROCORTISONE30 G7 EXT; +MEDROL4 M1 PO; +MUPIROCIN EXT; +VENTOLIN INH; +VICODIN HP 10-1 EACH PO
[2017-03-23 16:01] LABS: URINE SOURCE CLEAN CATCH
[2017-03-23 16:09] LABS: URINE APPEARANCE CLEAR; URINE BILIRUBIN NEG (NEG); URINE BLOOD NEG (NEG); URINE COLOR YELLOW; URINE GLUCOSE NEG (NEG); URINE KETONE NEG (NEG); URINE LEUKOCYTE ESTERASE NEG (NEG); URINE NITRATE NEG (NEG); URINE PROTEIN NEG (NEG); URINE SPECIFIC GRAVITY 1.007 (1.003-1.035); URINE UROBILINOGEN 0.2 MG/DL (NEG)
[2017-03-23 16:16] LABS: CULTURE INDICATED? NO
[2017-03-23 16:39] LABS: BASOPHIL# 0.1 X10e3 (0-0.3); BASOPHIL% 0.9 % (0-2.5); EOSINOPHIL# 0.1 X10e3 (0-0.7); EOSINOPHIL% 1.9 % (0.0-7.0); HEMATOCRIT 33.2 % (38.0-50.0); HEMOGLOBIN 10.4 gm/dL (13.0-16.0); LYMPHOCYTE# 1.4 X10e3 (1.0-3.5); LYMPHOCYTE% 18.8 % (17.0-45.0); MEAN CELL VOLUME 72.9 FL (83-96); MEAN CORPUSCULAR HEMOGLOBIN 22.9 PG (28-34); MEAN CORPUSCULAR HGB CONC 31.4 g/dL (30-36); MEAN PLATELET VOLUME 7.1 FL (6.5-11.5); MONOCYTE# 0.5 X10e3 (0-1.0); MONOCYTE% 6.5 % (3.0-12.0); NEUTROPHIL# 5.2 X10e3 (1.5-7.1); NEUTROPHIL% 71.9 % (40-75); PLATELET COUNT 264 X10e3 (140-420); RED BLOOD COUNT 4.56 X10e (3.90-5.60); RED CELL DISTRIBUTION WIDTH 18.2 % (11.0-15.5); WHITE BLOOD COUNT 7.2 X10e3 (4.0-10.5)
[2017-03-23 16:44] LABS: DIFF IND NO
[2017-03-23 17:03] LABS: ALBUMIN SERUM 3.5 g/dL (3.5-5.0); BILIRUBIN, DIRECT 0.1 mg/dL (0.0-0.2); BILIRUBIN,INDIRECT 0.8 mg/dL (0.0-0.9); BILIRUBIN,TOTAL 0.9 mg/dL (0.2-2.0); BUN/CREATININE RATIO 8.88; CALCIUM SERUM 8.8 mg/dL (8.4-10.2); CREATININE SERUM 0.9 mg/dL (0.6-1.4); GLOM FILT RATE Estimated 101.4 mL/min (>60); POTASSIUM 3.6 mmol/L (3.5-5.1)
== END 2017-03-23 19:35 | disposition home or self-care (01) ==
LOC: CED 14:23
PROVIDERS: Emergency Medicine
DX: R51 Headache (principal); G89.29 Other chronic pain; M54.5 Low back pain; R10.9 Unspecified abdominal pain; E11.9 Type 2 diabetes mellitus without complications; I10 Essential (primary) hypertension; J44.9 Chronic obstructive pulmonary disease, unspecified; Z88.0 Allergy status to penicillin; Z88.1 Allergy status to other antibiotic agents; Z88.8 Allergy status to other drugs, medicaments and biological substances; Z79.899 Other long term (current) drug therapy
CPT/HCPCS: 36415; 74176; 80048; 80076; 81003; 82947; 83690; 85025; 96361; 96374; 96375; 99284; J1100; J1200; J2765